=== PATIENT | female | born 1990 | race Two or more races ===

== ENCOUNTER 2017-12-04 15:17 | Emergency (ER) | payer OTHER ==
[2017-12-04] MEDS ORDERED: IBUPROFEN 800 MG TABLET PO ONE (15:59)
[2017-12-04] MEDS ORDERED: DIPH/PERTUSS(ACELL)/TETANUS VAC/PF 0.5 ML SYR (>=10YO) IM ONE (16:00)
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
[2017-12-04 17:55] VITALS: BP 104/66
== END 2017-12-04 18:02 | disposition home or self-care (01) ==
LOC: ER 15:17
DX: S29.012A Strain of muscle and tendon of back wall of thorax, initial encounter (principal); S39.012A Strain of muscle, fascia and tendon of lower back, initial encounter; S20.219A Contusion of unspecified front wall of thorax, initial encounter; R04.0 Epistaxis; V49.40XA Driver injured in collision with unspecified motor vehicles in traffic accident, initial encounter
CPT/HCPCS: 71046; 71120; 72070; 72110; 90471; 90715; 99284